=== PATIENT | female | born 1980 | race Caucasian/White ===

== ENCOUNTER 2018-07-05 18:02 | Emergency (ER) | payer MEDICAID ==
[2018-07-05] MEDS: ONDANSETRON (ODT) 4 MG TAB ODT (20:02)
[2018-07-05] MEDS: KETOROLAC 60 MG INJ IM (20:08)
== END 2018-07-05 21:02 | disposition home or self-care (01) ==
LOC: FTE 18:02
DX: R51 Headache (principal)
CPT/HCPCS: 70450; 81025; 96372; 99285-25

== ENCOUNTER 2019-05-02 20:28 | Emergency (ER) | payer MEDICAID ==
[2019-05-02 21:51] LABS: ADD MAN DIFF? NO
[2019-05-02 21:54] LABS: WHITE BLOOD COUNT 10.6 10^3/ul (4.8-10.8)
[2019-05-02 21:54] LABS: BASOPHILS % 0.4 % (0.0-2.0); EOSINOPHILS # 0.1 10^3/ul (0.0-0.5); HEMATOCRIT 32.4 % (37.0-47.0); HEMOGLOBIN 10.9 g/dl (12.0-16.0); LYMPHOCYTES # 2.5 10^3/ul (0.8-2.9); LYMPHOCYTES % 23.6 % (15.0-51.0); MEAN CORPUSCULAR HEMOGLOBIN 29.1 pg (29.0-33.0); MEAN CORPUSCULAR HGB CONC 33.6 g/dl (32.0-37.0); MEAN CORPUSCULAR VOLUME 86.6 fl (82.0-101.0); MEAN PLATELET VOLUME 8.8 fl (7.4-10.4); MONOCYTE # 0.8 10^3/ul (0.3-0.9); MONOCYTES % 7.5 % (0.0-11.0); NEUTROPHIL # 7.1 10^3/ul (1.6-7.5); PLATELET COUNT 192 10^3/UL (140-415); RED BLOOD COUNT 3.74 10^6/ul (4.20-5.40); RED CELL DISTRIBUTION WIDTH 16.4 % (11.5-14.5)
[2019-05-02 22:12] LABS: ALANINE AMINOTRANSFERASE 14 IU/L (13-69); ALBUMIN 3.6 g/dl (3.3-4.9); ALBUMIN/GLOBULIN RATIO 1.05; ALKALINE PHOSPHATASE 53 IU/L (42-121); ANION GAP 7 (5-13); ASPARTATE AMINO TRANSFERASE 20 IU/L (15-46); BILIRUBIN,INDIRECT 0.4 mg/dl (0-1.1); BILIRUBIN,TOTAL 0.4 mg/dl (0.2-1.3); BLOOD UREA NITROGEN 5 mg/dl (7-20); CALCIUM 8.9 mg/dl (8.4-10.2); CARBON DIOXIDE 25 mmol/L (21-31); CHLORIDE 105 mmol/L (97-110); CREATININE 0.42 mg/dl (0.44-1.00); Estimated GFR > 60 mL/min (>60); GLUCOSE 85 mg/dl (70-220); POTASSIUM 3.6 mmol/L (3.5-5.1); SODIUM 137 mmol/L (135-144)
[2019-05-02 22:23] LABS: TROPONIN-I < 0.012 ng/ml (0.000-0.120)
== END 2019-05-02 23:11 | disposition home or self-care (01) ==
LOC: FTE 23:11
DX: O26.892 Other specified pregnancy related conditions, second trimester (principal); R07.89 Other chest pain; Z3A.19 19 weeks gestation of pregnancy
CPT/HCPCS: 80053; 84484; 85025; 93005; 99284-25